=== PATIENT | male | born 1955 | race Caucasian/White ===

== ENCOUNTER 2017-06-22 11:08 | Emergency (ER) | payer MEDICARE ==
[2017-06-22] MEDS ORDERED: Sulfameth/Trimethoprim DS 800-160mg TAB ONE (11:46)
[2017-06-22] MEDS ORDERED: Bacitracin Zinc 1 Packet ONE (11:47)
== END 2017-06-22 11:55 | disposition home or self-care (01) ==
LOC: MADERS 11:08
DX: L03.114 Cellulitis of left upper limb (principal); J44.9 Chronic obstructive pulmonary disease, unspecified; I25.10 Atherosclerotic heart disease of native coronary artery without angina pectoris; Z87.891 Personal history of nicotine dependence
CPT/HCPCS: 99283